=== PATIENT | male | born 1980 | race Caucasian/White ===

== ENCOUNTER 2016-03-21 13:07 | Emergency (ER) | payer OTHER ==
[2016-03-21 13:25] VITALS: BP 160/63; PULSE 80; RESP 18; TEMP 98; O2SAT 96
--- NOTE | 2016-03-21 14:00 | UCPHY ---
[id number] 4d 03/21/16 13:32 HPI/ROS: CHIEF COMPLAINT: Eye pain HISTORY OF PRESENT ILLNESS: 35-year-old male presents to Urgent Care complaining of left eye pain. The patient was at work wearing safety goggles and a piece of equipment came loose and he had particles from a mud grinder go into his left eye. The incident happened just prior to arrival. He irrigated his eye did briefly at work. He describes foreign body sensation. No visual changes. He believes his tetanus shot is current. ROS: Denies double vision, blurry vision. Denies symptoms in the right eye. ( Genoveva Haas) Past Medical/Surgical History: Negative (Genoveva Haas) Social History: Single and lives in [place] (Genoveva Haas) Physical Exam: Pupils:equal round and reactive to light EOMI Lids: no edema or swelling upper eyelid was everted and no foreign body noted. Skin: no proptosis, no periorbital erythema or swelling, no vesicles Conjunctivae: Mild conjunctival injection noted in the left eye. No discharge. Cornea: After consent was obtained. Alcaine drops were instilled by the nurse and fluorescein was used under slit lamp examination there was corneal abrasion noted diffusely across the cornea. The pupil was spared. Retained debris noted in conjunctiva. Anterior chamber:normal, no hyphema or hypopyon (Genoveva Haas) Constitutional: Initial Vital Signs Temperature (C) 36.6 C 03/21/16 13:22 Heart Rate 80 03/21/16 13:22 Respiratory Rate 18 03/21/16 13:22 Blood Pressure 160/63 H 03/21/16 13:22 O2 Sat (%) 96 03/21/16 13:22 O2 Delivery Mode Room Air Allergies/Adverse Reactions: No Known Allergies Allergy (Verified 03/15/16 09:50) Home Medications: Medication Instructions Recorded No Medications [NO HOME 1 ea [facility] [place] 10/12/10 MEDICATIONS] Omeprazole [Prilosec 20 mg] 40 mg PO BID #14 capsule. 03/15/16 Ofloxacin 0.3% [Ocuflox] 1 - 2 drops LEFTEYE QID 7 Days 03/21/16 MDM/Departure - [facility] ED Course/Re-evaluation: 35-year-old male presents with foreign body sensation in his left eye. On examination patient has corneal abrasion as well as retained foreign body in the conjunctiva. The left eye was thoroughly irrigated and no foreign bodies remained. The patient was treated with Ocuflox drops. He is sure that his tetanus shot is current. He was told to follow up with Ophthalmology if his symptoms do not improve in 1-2 days or return to Urgent Care be any concerns. Patient verbalized understanding and agreed. (Genoveva Haas) Urgent Care PA supervision Physician documentation: The patient was evaluated and managed by the physician employee relations assistant. My co- signature indicates that I have reviewed this chart and I agree with the findings and plan of care as documented. I am the secondary supervising physician. (Dylan Gamino) - Depart Disposition: Home, Routine, Self-Care Clinical Impression: Injury of conjunctiva and corneal abrasion of left eye w/o FB Qualifiers: Encounter type: initial encounter Qualifier Code: (S05.02XA) Injury of conjunctiva and corneal abrasion without foreign body, left eye, initial encounter Condition: Good Instructions: Corneal Abrasion (ED) Additional Instructions: Ocuflox drops 1-2 drops four times daily for 7 days to left eye to prevent infection. Return if you develop visual changes or if you feel worse in any way. Prescriptions: Ofloxacin 0.3% [Ocuflox] 1 - 2 drops LEFTEYE QID 7 Days Referrals: Yessy Nuñez MD [Medical Doctor] - 1 day, if not improved (Financial Planning Advisor on-call) - PQRS PQRS Measurement: Not applicable (Genoveva Haas)
== END 2016-03-21 14:17 | disposition home or self-care (01) ==
LOC: CED 13:07
DX: S05.02XA Injury of conjunctiva and corneal abrasion without foreign body, left eye, initial encounter (principal); W31.9XXA Contact with unspecified machinery, initial encounter
CPT/HCPCS: G0463-PO